=== PATIENT | female | born 2005 | race Caucasian/White ===

== ENCOUNTER 2025-06-17 16:29 | Emergency (ER) | payer OTHER ==
[~2025-06-17] VITALS: Ht 162.6 cm; Wt 61.4 kg
[2025-06-17 16:32] VITALS: TEMP 97.7
[2025-06-17 16:59] VITALS: BP 108/60; PULSE 72; RESP 16; O2SAT 99
[2025-06-17] MEDS: CARBAMIDE PEROXIDE 6.5% 15 ML OTIC SOLUTION AU ONE (17:29)
== END 2025-06-17 19:37 | disposition home or self-care (01) ==
LOC: EMS 16:32
DX: H61.23 Impacted cerumen, bilateral (principal); F84.0 Autistic disorder
CPT/HCPCS: 69209; 99282; Z7502; Z7610